=== PATIENT | female | born 1950 | race African-American/Black ===

== ENCOUNTER 2025-07-04 15:46 | Inpatient (IN) | payer MEDICARE, MEDICAID ==
[~2025-07-04] VITALS: Ht 162.6 cm; Wt 90.3 kg
[2025-07-04 15:54] VITALS: O2SAT 98
[2025-07-04 17:39] LABS: BASOPHILS % 0.4 % (0.0-2.0); EOSINOPHILS % 3.6 % (0.0-5.0); HEMATOCRIT. 36.4 % (36.0-48.0); HEMOGLOBIN. 11.8 g/dL (12.0-16.0); LYMPHOCYTES % 37.1 % (20.0-50.0); MEAN PLATELET VOLUME 10.2 fl (7.4-10.4); MONOCYTES % 5.4 % (2.0-8.0); NEUTROPHILS % 53.5 % (40.0-76.0); PLATELET 265 x1000/uL (130-400); RED BLOOD CELL COUNT 4.26 mill/uL (4.2-5.4); RED CELL DISTRIBUTION WIDTH 16.4 % (11.6-14.6)
[2025-07-04 17:45] LABS: INR 1.0
[2025-07-04] MEDS: ACETAMINOPHEN 325MG TABLET PO ONE (17:51)
[2025-07-04 17:56] LABS: CREATININE 1.0 mg/dL (0.6-1.0)
[2025-07-04 17:57] LABS: TROPONIN I HIGH SENSITIVITY 12 ng/L (3.0-34); UREA NITROGEN BLOOD 9 mg/dL (9-23)
[2025-07-04 17:58] LABS: ASPARTATE AMINOTRANSFERASE 25 IU/L (<34); BILIRUBIN DIRECT < 0.1 mg/dL (<=3.0)
[2025-07-04 17:59] LABS: BILIRUBIN TOTAL 0.2 mg/dL (0.1-1.0); PROTEIN TOTAL 7.6 g/dL (6.0-8.3)
[2025-07-04 20:48] VITALS: BP 188/99; PULSE 73; RESP 20; TEMP 36.6; O2SAT 100
[2025-07-04 20:51] LABS: CLARITY URINE CLEAR (CLEAR); GLUCOSE URINE NEGATIVE (NEGATIVE); KETONES URINE NEGATIVE (NEGATIVE); LEUKOCYTE ESTERASE URINE NEGATIVE (NEGATIVE); NITRITE URINE NEGATIVE (NEGATIVE); OCCULT BLOOD URINE TRACE (NEGATIVE); PH URINE 7.5 (4.5-8.0); PROTEIN URINE NEGATIVE (NEGATIVE); SPECIFIC GRAVITY URINE 1.011 (1.005-1.030); UROBILINOGEN URINE 1.0 E.U./dL (0.2-1.0)
[2025-07-04 21:00] LABS: *AMPHETAMINES SCREEN URINE NEGATIVE (NEGATIVE); *BARBITURATES SCREEN URINE NEGATIVE (NEGATIVE); *BENZODIAZEPINES SCREEN URINE NEGATIVE (NEGATIVE)
[2025-07-04 21:01] LABS: *COCAINE SCREEN URINE NEGATIVE (NEGATIVE); CANNABINOID URINE SCREEN NEGATIVE (NEGATIVE); ECSTASY MDMA SCREEN URINE NEGATIVE (NEGATIVE); METHADONE URINE SCREEN NEGATIVE (NEGATIVE); OPIATES URINE SCREEN NEGATIVE (NEGATIVE); PHENCYCLIDINE URINE SCREEN NEGATIVE (NEGATIVE)
[2025-07-04 21:37] LABS: COLOR URINE STRAW (YELLOW)
[2025-07-04 21:38] LABS: BACTERIA URINE NONE SEEN; RBC URINE 0-2 /hpf (0-2); SQUAMOUS EPITHELIAL CELL URINE RARE /lpf (RARE/1+); WBC URINE 0-2 /hpf (0-2)
[2025-07-04 22:09] VITALS: BP 188/99; PULSE 73; RESP 20; TEMP 36.6404
[2025-07-04 22:22] VITALS: BP 162/80
[2025-07-04] MEDS: AMLODIPINE 10MG TABLET PO SCH (22:47)
[2025-07-05] VITALS: BP 164/81; PULSE 70; RESP 20; TEMP 36.8; O2SAT 100
[2025-07-05 04:00] VITALS: BP 164/86; PULSE 72; RESP 20; TEMP 36.8; O2SAT 100
[2025-07-05] MEDS: HYDRALAZINE 20MG/ML VIAL IV PRN (05:14)
[2025-07-05 06:12] VITALS: BP 124/59
[2025-07-05 07:24] LABS: BASOPHILS % 0.5 % (0.0-2.0); EOSINOPHILS % 4.3 % (0.0-5.0); HEMATOCRIT. 34.8 % (36.0-48.0); HEMOGLOBIN. 11.6 g/dL (12.0-16.0); LYMPHOCYTES % 33.9 % (20.0-50.0); MEAN PLATELET VOLUME 9.9 fl (7.4-10.4); MONOCYTES % 7.3 % (2.0-8.0); NEUTROPHILS % 54.0 % (40.0-76.0); PLATELET 257 x1000/uL (130-400); RED BLOOD CELL COUNT 4.11 mill/uL (4.2-5.4); RED CELL DISTRIBUTION WIDTH 16.3 % (11.6-14.6)
[2025-07-05 07:49] LABS: CREATININE 0.7 mg/dL (0.6-1.0); TRIGLYCERIDE 118 mg/dL (0-150)
[2025-07-05 07:50] LABS: LDL CHOLESTEROL 140 mg/dL (5-100); UREA NITROGEN BLOOD 7 mg/dL (9-23)
[2025-07-05 07:51] LABS: ASPARTATE AMINOTRANSFERASE 24 IU/L (<34)
[2025-07-05 07:52] LABS: BILIRUBIN TOTAL 0.4 mg/dL (0.1-1.0); PROTEIN TOTAL 6.8 g/dL (6.0-8.3)
[2025-07-05 08:00] VITALS: BP 124/63; PULSE 78; RESP 19; TEMP 37; O2SAT 100
[2025-07-05] MEDS: ASPIRIN 81MG TABLET PO SCH (08:28)
[2025-07-05] MEDS: ENOXAPARIN 40MG/0.4ML SYR SUBCUT SCH (08:29)
[2025-07-05 12:00] VITALS: BP 158/85; PULSE 84; RESP 18; TEMP 37.1; O2SAT 100
[2025-07-05] MEDS ORDERED: IPRATROPIUM/ALBUTEROL 0.5-3(2.5)MG/3ML NEB HHN PRN (14:30)
[2025-07-05] MEDS ORDERED: ACETAMINOPHEN 325MG TABLET PO PRN (14:30)
[2025-07-05] MEDS ORDERED: DOCUSATE SODIUM 100MG CAPSULE PO PRN (14:30)
[2025-07-05] MEDS ORDERED: IOHEXOL-350 100 ML BOTTLE ONE ×2 (16:13→16:14)
[2025-07-05] MEDS: CEFTRIAXONE 1GM/50ML 50 ML IV SCH (16:44)
[2025-07-05] MEDS: POTASSIUM CHLORIDE 20MEQ TABLET SR PO SCH (16:44)
[2025-07-05] MEDS: AZITHROMYCIN 500MG/250ML 250 ML IV SCH (16:44)
[2025-07-05 20:00] VITALS: BP 131/66; PULSE 79; RESP 18; TEMP 36.4; O2SAT 99
[2025-07-05] MEDS: HYDRALAZINE HCL 25MG TABLET PO SCH (21:20)
[2025-07-05] MEDS: ATORVASTATIN CALCIUM 40MG TABLET PO SCH (21:20)
[2025-07-05] MEDS ORDERED: IOHEXOL-300 100 ML BOTTLE ONE (23:08)
[2025-07-06] VITALS (8 sets, daily range): BP systolic 126–171; BP diastolic 72–95; PULSE 74–89; RESP 17–20; TEMP 36.1–36.6; O2SAT 81–100
[2025-07-06] MEDS: PANTOPRAZOLE SODIUM 40 MG/VIAL IV SCH (08:09)
[2025-07-06] MEDS ORDERED: IOHEXOL-350 100 ML BOTTLE ONE (10:04)
[2025-07-06] MEDS: CLOPIDOGREL 75MG TABLET PO SCH (11:19)
[2025-07-06] MEDS: ACETAMINOPHEN 325MG TABLET PO PRN (17:16)
[2025-07-06] MEDS: ONDANSETRON HCL 4MG/2ML INJ IV PRN (20:29)
[2025-07-06 21:27] LABS: BASOPHILS % 1.3 % (0.0-2.0); EOSINOPHILS % 2.3 % (0.0-5.0); HEMATOCRIT. 37.6 % (36.0-48.0); HEMOGLOBIN. 12.2 g/dL (12.0-16.0); LYMPHOCYTES % 26.1 % (20.0-50.0); MEAN PLATELET VOLUME 10.2 fl (7.4-10.4); MONOCYTES % 5.7 % (2.0-8.0); NEUTROPHILS % 64.6 % (40.0-76.0); PLATELET 297 x1000/uL (130-400); RED BLOOD CELL COUNT 4.41 mill/uL (4.2-5.4); RED CELL DISTRIBUTION WIDTH 16.4 % (11.6-14.6)
[2025-07-06 21:48] LABS: CREATININE 0.8 mg/dL (0.6-1.0)
[2025-07-06 21:50] LABS: PHOSPHORUS 3.9 mg/dL (2.5-4.9); UREA NITROGEN BLOOD 13 mg/dL (9-23)
[2025-07-07] VITALS: BP 137/72; PULSE 84; RESP 20; TEMP 36.6; O2SAT 97
[2025-07-07 03:57] VITALS: BP 147/75; PULSE 91; RESP 20; TEMP 36.7; O2SAT 97
[2025-07-07 08:00] VITALS: BP 170/80; PULSE 91; RESP 16; TEMP 36.3; O2SAT 98
[2025-07-07] MEDS: CLONIDINE 0.1MG TABLET PO PRN (08:17)
[2025-07-07 12:00] VITALS: BP 141/80; PULSE 85; RESP 18; TEMP 36.4; O2SAT 100
[2025-07-07 16:00] VITALS: BP 153/80; PULSE 91; RESP 18; TEMP 36.4; O2SAT 100
[2025-07-07 20:00] VITALS: BP 146/83; PULSE 75; RESP 20; TEMP 36.2; O2SAT 96
[2025-07-08] VITALS: BP 138/78; PULSE 79; RESP 16; TEMP 36.2; O2SAT 97
[2025-07-08 04:00] VITALS: BP 151/80; PULSE 76; RESP 18; TEMP 36.2; O2SAT 98
[2025-07-08 08:00] VITALS: BP 157/84; PULSE 67; RESP 18; TEMP 36.4; O2SAT 97
[2025-07-08 12:00] VITALS: BP 142/89; PULSE 90; RESP 18; TEMP 36.4; O2SAT 99
[2025-07-08] MEDS: AZITHROMYCIN 500 MG TABLET PO SCH (13:29)
[2025-07-08 16:00] VITALS: BP 154/86; PULSE 85; RESP 18; TEMP 36.3; O2SAT 97
[2025-07-08 22:00] VITALS: BP 149/90; PULSE 85; RESP 18; TEMP 36.7; O2SAT 90
[2025-07-09 04:00] VITALS: BP 153/92; PULSE 86; RESP 18; TEMP 36.4; O2SAT 90
[2025-07-09 08:00] VITALS: BP 147/89; PULSE 80; RESP 18; TEMP 36.1; O2SAT 92
[2025-07-09] MEDS: FAMOTIDINE 20MG/2ML VIAL IV SCH (08:23)
[2025-07-09 12:00] VITALS: BP 137/84; PULSE 91; RESP 18; TEMP 35.9; O2SAT 94
[2025-07-09] MEDS ORDERED: CLOP-31 MT (12:48)
[2025-07-09] MEDS ORDERED: ASPI-1406 MT (12:48)
[2025-07-09] MEDS ORDERED: LIP40 MT (12:48)
[2025-07-09 13:02] VITALS: BP 146/83; PULSE 75; RESP 18; TEMP 97.1
[2025-07-09 15:40] VITALS: BP 146/83; PULSE 75; RESP 18; TEMP 35.7; O2SAT 100
== END 2025-07-09 17:27 | disposition home or self-care (01) | DRG 64 ==
LOC: ER 15:46 → EDBEDREQ 19:40 → EDBEDREQTM 19:40 → ENRESERV 20:24 → 7WST 21:10
PROVIDERS: ADMIT Internal Medicine; ATTEND Internal Medicine
DX: I63.81 Other cerebral infarction due to occlusion or stenosis of small artery (principal); G92.8 Other toxic encephalopathy; D64.9 Anemia, unspecified; E11.9 Type 2 diabetes mellitus without complications; E78.00 Pure hypercholesterolemia, unspecified; E87.6 Hypokalemia; Z79.02 Long term (current) use of antithrombotics/antiplatelets; I11.9 Hypertensive heart disease without heart failure; R91.8 Other nonspecific abnormal finding of lung field; Z79.82 Long term (current) use of aspirin; Z86.73 Personal history of transient ischemic attack (TIA), and cerebral infarction without residual deficits; Z87.891 Personal history of nicotine dependence
CPT/HCPCS: 36415; 70470; 70496; 70498; 70551; 71045; 71275; 80048; 80053; 80061; 80076; 80305; 80320; 81003; 83036; 83605; 83735; 83880; 84100; 84145; 84484; 85025; 92523; 93005; 93306; 97161; 97165; 99285; A4606; J0360; J0456; J0696; J1308; J1650; J2405; J2470; Q9967; G0480